=== PATIENT | female | born 1945 | race Caucasian/White ===

== ENCOUNTER 2018-04-17 10:13 | Outpatient (CLI) | payer OTHER ==
[2015-10-06 16:14] VITALS: BP 142/72
[2018-04-17 11:27] LABS: EOSINOPHILS % 1.7 % (0.0-6.8); MEAN CORPUSCULAR HEMOGLOBIN 30.4 pg (28.0-34.0); MONOCYTES % 7.4 % (0.0-11.0)
[2018-04-17 11:28] LABS: BASOPHILS % 0.5 (0.0-1.5); NEUTROPHILS # 3.6 # k/uL (1.4-7.7)
[2018-04-17 12:08] LABS: eGFR (Non-African) > 60
--- NOTE | 2018-04-17 21:56 | Diagnostic Imaging Report ---
MAYITO SHEPPARD [facility] [address] [facility].[address] [address] Report Submission Date: Apr 17, 2018 11:14:28 AM CDT Patient Study Name: ELSI MORAN Date: Apr 17, 2018 10:33:17 AM CDT Modality Type: DX Gender: F Description: CHEST : 49 Institution: [facility] Physician: MAYITO SHEPPARD Examination: PA and lateral chest. History: Evaluate lung miels. CHEST TIGHTNESS, HEART PALPITATIONS FOR ABOUT 3 DAYS. PT STATES NON-SMOKER WITH NO KNOWN CHEST HX (Hx) Comparison exam: None provided. Findings: PA and lateral views of the chest demonstrates a normal cardiac and mediastinal silhouette. Tortuous aorta. No focal infiltrate. No blunting of the costophrenic margins. Osseous structures are appropriate for age. Impression: No acute pulmonary process. Electronically signed on Apr 17, 2018 11:14:28 AM CDT by: Gerardo LOPES
--- NOTE | 2018-04-17 21:58 | Diagnostic Imaging Report ---
MAYITO SHEPPARD [facility] [address] [facility] [address] [address] Report Submission Date: Apr 17, 2018 3:35:22 PM CDT Patient Study Name: ELSI MORAN Date: Apr 17, 2018 2:55:53 PM CDT Modality Type: CT\SR Gender: F Description: CT PE CHEST : 49 Institution: [facility] Physician: MAYITO SHEPPARD Examination: CT chest pulmonary embolism History: SHORTNESS OF BREATH, TACHYPNEA, ELEVATED D-DIMER (Hx) Comparison exam: None provided Technique: CT chest pulmonic pulmonary embolism protocol. Findings: No evidence for luminal filling defect within the main pulmonary arteries to the 3rd order branch vessels bilaterally. Thoracic aorta without aneurysmal dilation. No evidence for dissection flap. Peripheral atherosclerotic disease and mural thickening. Tortuosity near the diaphragm. Lungs demonstrate dependent atelectasis and scarring bilaterally. No evidence for posterior pleural effusion or thickening. No mediastinal or lobo mass or pathologic adenopathy. Cardiac silhouette not enlarged. No pericardial effusion. Osseous structures demonstrate degenerative changes. Lower neck structures and axilla regions are without gross irregularity. Hiatal hernia. Impression: No evidence for pulmonary embolism by CT criteria. No evidence for thoracic aortic dissection or abnormality. Lung base scarring and atelectasis. No effusion. Hiatal hernia. Electronically signed on Apr 17, 2018 3:35:22 PM CDT by: Gerardo LOPES
== END 2018-04-17 10:14 ==
LOC: RT 10:13
PROVIDERS: ATTEND Physician Assistant
DX: R06.02 Shortness of breath (principal); R07.89 Other chest pain; R00.2 Palpitations; R06.82 Tachypnea, not elsewhere classified; R79.89 Other specified abnormal findings of blood chemistry
CPT/HCPCS: 36415; 71046; 71275; 80053; 83880; 84484; 85025; 85379; Q9967

== ENCOUNTER 2019-03-25 15:26 | Outpatient (CLI) | payer OTHER ==
[2018-10-26 12:01] VITALS: BP 177/94
== END 2019-03-25 15:28 ==
LOC: LABRHC 15:26
PROVIDERS: ATTEND Family Medicine
DX: R30.0 Dysuria (principal); R35.0 Frequency of micturition
CPT/HCPCS: 87086; 87186

== ENCOUNTER 2019-04-06 13:50 | Outpatient (CLI) | payer OTHER ==
[2018-10-26 12:01] VITALS: BP 177/94
--- NOTE | 2019-04-28 15:08 | Diagnostic Imaging Report ---
CORNELIA PADILLA [facility] [address] [facility] [address] [address] Report Submission Date: Apr 06, 2019 2:07:56 PM CDT Patient Study Name: ELSI MORAN Date: Apr 06, 2019 1:47:34 PM CDT Modality Type: DX Gender: F Description: LT HIP 2VIEW COMPLETE : 49 Institution: [facility] Physician: CORNELIA PADILLA Examination: Plain film left hip History: LEFT HIP PAIN Comparison exams: None provided Findings: 2 views of the left hip demonstrate normal cortical margins. No fracture no dislocation. Sacroiliac joint degenerative changes. No soft tissue abnormality. Impression: No acute osseous abnormality. Electronically signed on Apr 06, 2019 2:07:56 PM CDT by: Gerardo LOPES
== END 2019-04-06 14:00 ==
LOC: RAD 13:50
PROVIDERS: ATTEND Family Medicine
DX: M25.552 Pain in left hip (principal)
CPT/HCPCS: 73562